=== PATIENT | female | born 1960 | race Hispanic/Latino ===

== ENCOUNTER 2017-05-06 19:55 | Emergency (ER) | payer SELFPAY ==
[2017-05-06 20:05] VITALS: TEMP 99.8
--- NOTE | 2017-05-06 21:00 | ED PDOC ---
Arrival/HPI - General Chief Complaint: High Blood Pressure Time Seen by Provider: 05/06/17 19:59 Historian: Patient, Family - History of Present Illness Narrative History of Present Illness (Text): 05/06/17 21:00 A 56 year old female, who denies any significant past medical history, presents to the emergency department for elevated blood pressure. The patient states that she took her blood pressure because she felt a pressure sensation in her face and head. The patient denies any head trauma, visual disturbances, chest pain, shortness of breath, or any other complaints at this time. Time/Duration: Prior to Arrival Symptom Onset: Sudden Quality: Pressure Activities at Onset: Light Context: Home Past Medical History - Provider Review Nursing Documentation Reviewed: Yes - Psychiatric Hx Psychophysiologic Disorder: No Hx Substance Use: No Family/Social History - Physician Review Nursing Documentation Reviewed: Yes Family/Social History: No Known Family HX Smoking Status: Never Smoked Hx Alcohol Use: No Hx Substance Use: No Allergies/Home Meds Allergies/Adverse Reactions: Allergies No Known Allergies Allergy (Verified 05/06/17 19:58) Review of Systems - Physician Review All systems were reviewed & negative as marked: Yes - Review of Systems Eyes: absent: Vision Changes Respiratory: absent: SOB Cardiovascular: Other (high blood pressure). absent: Chest Pain Physical Exam Vital Signs Temp Pulse Resp BP Pulse Ox 05/06/17 21:57 100 H 149/90 05/06/17 21:37 18 145/91 H 99 05/06/17 20:40 92 H 165/102 H 05/06/17 20:03 99.8 F H 114 H 16 170/122 H 95 Temperature: Afebrile Blood Pressure: Hypertensive Pulse: Regular Respiratory Rate: Normal Appearance: Positive for: Well-Appearing, Non-Toxic, Comfortable Pain Distress: None Mental Status: Positive for: Alert and Oriented X 3 - Systems Exam Head: Present: Atraumatic, Normocephalic Pupils: Present: PERRL Extroacular Muscles: Present: EOMI Conjunctiva: Present: Normal Ears: Present: NORMAL TM Mouth: Present: Moist Mucous Membranes Pharnyx: Present: Normal. No: ERYTHEMA, EXUDATE, TONSILS ENLARGED, Peritonsilar Swelling, Uvular Deviation, Muffled/Hoarse Voice Neck: Present: Normal Range of Motion. No: Meningeal Signs Respiratory/Chest: Present: Clear to Auscultation, Good Air Exchange. No: Respiratory Distress, Accessory Muscle Use Cardiovascular: Present: Regular Rate and Rhythm, Normal S1, S2. No: Murmurs Abdomen: Present: Normal Bowel Sounds. No: Tenderness, Distention, Peritoneal Signs Back: Present: Normal Inspection Upper Extremity: Present: Normal Inspection. No: Cyanosis, Edema Lower Extremity: Present: Normal Inspection. No: Edema Neurological: Present: GCS=15, CN II-XII Intact, Speech Normal, Motor Func Grossly Intact, Normal Sensory Function Skin: Present: Warm, Dry, Normal Color. No: Rashes Psychiatric: Present: Alert, Oriented x 3, Normal Insight, Normal Concentration Medical Decision Making ED Course and Treatment: 05/06/17 21:01 Impression: A 56 year old female with high blood pressure. Plan: -- Labs -- Catapres -- Reassess and disposition Prior Visits: Notes and results from previous visits were reviewed. Progress Notes: 05/06/17 22:15 Pt. now reports hx. urinary frequency and sore throat discomfort. - Lab Interpretations Lab Results: 05/06/17 20:40 05/06/17 20:40 Lab Results 05/06/17 22:28: Urine Color Yellow, Urine Appearance Clear, Urine pH 6.5, Ur Specific [place] <= 1.005, Urine Protein Negative, Urine Glucose (UA) Negative, Urine Ketones Negative, Urine Blood Small H, Urine Nitrate Negative, Urine Bilirubin Negative, Urine Urobilinogen 0.2, Ur Leukocyte Esterase Negative, Urine RBC 0 - 2, Urine WBC 0 - 2, Ur Epithelial Cells None, Urine Bacteria Neg 05/06/17 20:40: WBC 8.9, RBC 4.45, Hgb 14.3, Hct 42.2, MCV 94.8, MCH 32.1, MCHC 33.9, RDW 13.9, Plt Count 451 H, MPV 10.3 05/06/17 20:40: Sodium 140, Potassium 4.0, Chloride 103, Carbon Dioxide 23, Anion Gap 18, BUN 17, Creatinine 0.8, Est GFR ( Amer) > 60, Est GFR (Non- Af Amer) > 60, Random Glucose 107, Calcium 9.9, Total Bilirubin 0.5, AST 34, ALT 34, Alkaline Phosphatase 67, Total Protein 8.6 H, Albumin 4.5, Globulin 4.1 , Albumin/Globulin Ratio 1.1 - Medication Orders Current Medication Orders: Discontinued Medications Amlodipine Besylate (Norvasc) 5 mg PO STAT STA Stop: 05/06/17 21:44 Last Admin: 05/06/17 21:57 Dose: 5 mg MAR Pulse and Blood Pressure Document 05/06/17 21:57 SS (Rec: 05/06/17 21:57 SS [id number]) Pulse Pulse Rate (60-90 beats/min) 100 Blood Pressure Blood Pressure (100/60-150/90 mm Hg) 149/90 Cephalexin Monohydrate (Keflex) 500 mg PO ONCE STA PRN Reason: Protocol Stop: 05/06/17 23:10 Clonidine HCl (Catapres) 0.2 mg PO STAT STA Stop: 05/06/17 20:23 Last Admin: 05/06/17 20:40 Dose: 0.2 mg MAR Pulse and Blood Pressure Document 05/06/17 20:40 SS (Rec: 05/06/17 20:40 SS [id number]) Pulse Pulse Rate (60-90 beats/min) 92 Blood Pressure Blood Pressure (100/60-150/90 mm Hg) 165/102 - Scribe Statement The provider has reviewed the documentation as recorded by the Scribtammy Vitale Provider Scribe Attestation: All medical record entries made by the Scribe were at my direction and personally dictated by me. I have reviewed the chart and agree that the record accurately reflects my personal performance of the history, physical exam, medical decision making, and the department course for this patient. I have also personally directed, reviewed, and agree with the discharge instructions and disposition. Disposition/Present on Arrival - Present on Arrival Any Indicators Present on Arrival: No History of DVT/PE: No History of Uncontrolled Diabetes: No Urinary Catheter: No History of Decub. Ulcer: No History Surgical Site Infection Following: None - Disposition Have Diagnosis and Disposition been Completed?: Yes Diagnosis: Hypertension, UTI (urinary tract infection) Disposition: HOME/ ROUTINE Disposition Time: 22:12 Patient Plan: Discharge Patient Problems: Current Active Problems Problem Status Onset Hypertension Acute UTI (urinary tract infection) Acute Condition: GOOD Discharge Instructions (ExitCare): Urinary Tract Infection in Women (ED), Hypertension (ED) Additional Instructions: Take meds as prescribed/follow up with your doctor this week Prescriptions: Cephalexin [cephalexin] 500 mg PO BID #14 cap amLODIPine [Norvasc] 5 mg PO DAILY #30 tab Forms: [employer] (Tristanian)
[2017-05-06 21:12] LABS: ALB/GLOB RATIO 1.1 (1.1-1.8); ALBUMIN 4.5 g/dL (3.0-4.8); ALT/SGPT 34 U/L (7-56); AST/SGOT 34 U/L (14-36); BLOOD UREA NITROGEN 17 mg/dL (7-21); CALCIUM 9.9 mg/dL (8.4-10.5); GFR AFRICAN-AMERICAN > 60; GFR NON-AFRICAN AMERICAN > 60
[2017-05-06 21:37] VITALS: RESP 18; O2SAT 99
[2017-05-06 21:41] LABS: HEMOGLOBIN 14.3 g/dL (12.0-16.0); MEAN CELL VOLUME 94.8 fl (80.0-105.0); MEAN CORPUSCULAR HEMOGLOBIN 32.1 pg (25.0-35.0); MEAN CORPUSCULAR HGB CONC 33.9 g/dl (31.0-37.0); MEAN PLATELET VOLUME 10.3 fl (7.0-11.0); RBC 4.45 10^6/uL (3.5-6.1); RED CELL DISTRIBUTION WIDTH 13.9 % (11.5-14.5); WHITE BLOOD COUNT 8.9 10^3/ul (4.5-11.0)
[2017-05-06 21:57] VITALS: BP 149/90; PULSE 100
[2017-05-06 22:54] LABS: PH,URINE 6.5 (4.7-8.0); URINE BILIRUBIN NEGATIVE (NEGATIVE); URINE BLOOD SMALL (NEGATIVE); URINE GLUCOSE (UA) NEGATIVE (NEGATIVE); URINE LEUKOCYTE ESTERASE NEGATIVE Leu/uL (NEGATIVE); URINE NITRATE NEGATIVE (NEGATIVE); URINE PROTEIN NEGATIVE mg/dL (<30 mg/dL); URINE UROBILINOGEN 0.2 E.U./dL (<1 E.U./dL)
[2017-05-06 23:02] LABS: URINE APPEARANCE CLEAR (CLEAR); URINE COLOR YELLOW (YELLOW)
[2017-05-06 23:10] LABS: URINE RBC 0 - 2 /hpf (0-2)
[2017-05-06 23:11] LABS: URINE BACTERIA NEG (NEG); URINE WBC 0 - 2 /hpf (0-6)
== END 2017-05-06 23:20 | disposition home or self-care (01) ==
LOC: ED 19:55
DX: I10 Essential (primary) hypertension (principal); N39.0 Urinary tract infection, site not specified